=== PATIENT | female | born 1985 | race Caucasian/White ===

== ENCOUNTER 2016-12-22 14:48 | Emergency (ER) | payer SELFPAY ==
[2016-12-22 16:01] VITALS: BP 123/70
--- NOTE | 2016-12-22 16:24 | UC ---
Throat Pain/Nasal Joey HPI - HPI Summary HPI Summary: complaint of nasal congestion that started last night intermittent headache frequent coughing using vicks vapor rub denies fever and chills took some sudafed and excedrin this morning with some relief beiong treated for sinus infection that he has had for over a week - History of Current Complaint Chief Complaint: UCRespiratory Stated Complaint: SINUS COMPLAINT Time Seen by Provider: 12/22/16 16:08 Hx Obtained From: Patient Hx Last Menstrual Period: December 05, 2016 - Allergies/Home Medications Allergies/Adverse Reactions: Allergies Allergy/AdvReac Type Severity Reaction Status Date / Time Hydromorphone [From Dilaudid] Allergy Severe Swelling Verified 05/26/16 18:44 Morphine Allergy Severe Itching Verified 05/26/16 18:44 Penicillins Allergy Severe Anaphylatic Verified 05/26/16 18:44 Shock Hydrocodone [From Vicodin] Allergy Vomiting Verified 05/26/16 18:44 Home Medications: Home Medications Dextromethorphan-Acetaminophen [Triaminic Flu/Cough/Fever] 1 liq PO 12/22/16 [ History] PMH/Surg Hx/FS Hx/Imm Hx Previously Healthy: Yes Endocrine History Of: Denies: Diabetes, Thyroid Disease Cardiovascular History Of: Denies: Cardiac Disorders, Hypertension Respiratory History Of: Denies: COPD, Asthma GI/ History Of: Denies: Ulcer Comment Only: Gall Bladder Disease - gallbladder removal - Surgical History Surgical History: Yes Surgery Procedure, Year, and Place: CHOLECYSTECTOMY, APPENDECTOMY, RIGHT FINGER , RIGHT HAND, right eye surgery, Hemorrhagic ovarian cyst - Family History Known Family History: Positive: None Family History: no cardio vascular issues in family lineage - Social History Occupation: Employed Full-time Lives: With Family Alcohol Use: Occasionally Substance Use Type: None Smoking Status (MU): Current Every Day Smoker Type: Cigarettes Amount Used/How Often: 1/2 ppd Length of Time of Smoking/Using Tobacco: 10 years Have You Smoked in the Last Year: Yes Cessation Counseling: Patient Advised to Stop - Immunization History Most Recent Influenza Vaccination: 2015/2015 season Most Recent Tetanus Shot: within last ten years Most Recent Pneumonia Vaccination: No Review of Systems Constitutional: Negative Skin: Negative Eyes: Negative ENT: Nasal Discharge Respiratory: Cough Cardiovascular: Negative Gastrointestinal: Negative Genitourinary: Negative Motor: Negative Neurovascular: Negative Musculoskeletal: Negative Neurological: Headache Psychological: Negative All Other Systems Reviewed And Are Negative: Yes Physical Exam Triage Information Reviewed: Yes Appearance: No Pain Distress, Well-Nourished Vital Signs: Initial Vital Signs Temp 98.0 F 12/22/16 15:55 Pulse 74 12/22/16 15:55 Resp 20 12/22/16 15:55 BP 123/70 12/22/16 15:55 Pulse Ox 100 12/22/16 15:55 Vital Signs Reviewed: Yes Eyes: Positive: Conjunctiva Clear ENT: Positive: Pharyngeal erythema, Nasal congestion, Nasal drainage, TMs normal. Negative: TM bulging, TM red, Tonsillar swelling, Tonsillar exudate Neck: Positive: No Lymphadenopathy Respiratory: Positive: Lungs clear, Normal breath sounds, No respiratory distress Cardiovascular: Positive: RRR, No Murmur Abdomen Description: Positive: Nontender, Soft Bowel Sounds: Positive: Present Musculoskeletal: Positive: No Edema Neurological Exam: Normal Psychological Exam: Normal Skin Exam: Normal Throat Pain/Nasal Course/Dx - Course Course Of Treatment: exam completed. pt demanding antibiotic for treatment. explained that treatment for URI doesn't require an antibiotic but can be treated for symptoms and if she doesn't improve in 5-7 days she may need an antibiotic for secondary infection - Differential Dx/Diagnosis Differential Diagnosis/HQI/PQRI: Pharyngitis, Sinusitis, URI Provider Diagnoses: URI Discharge - Discharge Plan Condition: Stable Disposition: HOME Patient Education Materials: Upper Respiratory Infection (ED) Referrals: Erick Herbert MD [Medical Doctor] - Additional Instructions: VIRAL UPPER RESPIRATORY INFECTION (COMMON COLD) What is Viral Upper Respiratory Infection? Viral upper respiratory infection is the medical term for the common cold. Respiratory infections can be caused by either a virus or bacteria. The common cold is caused by a virus. The virus travels through the air and can be passed easily from one person to another. This is one reason that it is so important to cover your mouth when you cough or sneeze. When you cover your mouth you will get the virus on your hands. If you touch something with that hand the virus is spread to the object you touch. Because of this you should be sure to wash your hands often when you have a cold. Symptoms usually begin 1 to 3 days after the virus takes hold in your body. Other people can catch your cold even before you start to notice symptoms, which is one reason why colds are hard to prevent. Symptoms May Include: Scratchiness or tickling in the throat Sore throat Stuffy nose Generalized aches and pains Coughing or sneezing Feeling tired Treatment Recommendations: Drink plenty of clear, nonalcoholic fluids, such as water, sports drinks, or juice. For example, an average adult should drink 8 ounces every hour, a child 6 to 10 years should drink 4 ounces every hour, and a child under 6 should drink 1 to 2 ounces every hour. You should rest as much as possible. You can use a cool-mist humidifier or steam vaporizer to increase air moisture. This will make it easier to breathe. Remember that a steam vaporizer may contain hot water that can cause severe león. If you smoke, stopsmoke irritates bronchial passages. If you are coughing up mucus, and milk seems to make the sputum thicker, do not eat or drink foods that contain milk. You want to try to cough up mucous whenever possible so that you dont get pneumonia. Do not use cough suppressant medicine without your healthcare providers OK. You should take all medications prescribed until completely gone, or as instructed. Non-prescription medicine such as acetaminophen (Tylenol) or ibuprofen (Motrin , Advil) may help your aches, pains, and fever. Do not take someone else's medicine, or penicillin tablets that you may have saved. You could cause a more serious problem than you already have. Don't bundle up to sweat out a fever. It only makes your fever worse. If you feel cold, cover up; if you feel warm, dress lightly. Your blood pressure is pre-hypertensive reading. Please contact your primary care provider within 1 day -4 weeks for further evaluation
== END 2016-12-22 16:35 | disposition home or self-care (01) ==
LOC: UCEAST 14:48
DX: J06.9 Acute upper respiratory infection, unspecified (principal); Z90.49 Acquired absence of other specified parts of digestive tract; Z88.5 Allergy status to narcotic agent; Z88.0 Allergy status to penicillin; F17.210 Nicotine dependence, cigarettes, uncomplicated
CPT/HCPCS: 99211; G0463

== ENCOUNTER 2017-03-13 18:17 | Emergency (ER) | payer OTHER ==
[2017-03-13] MEDS ORDERED: Ondansetron INJ* 2 MG/ML VIAL IV ONE (20:20)
[2017-03-13] MEDS ORDERED: NS 0.9% 1000 ML* 1,000 ML IV ONE (20:20)
[2017-03-13] MEDS ORDERED: Ketorolac INJ* 30 MG/ML 1 ML VIAL IV PUSH ONE (20:20)
[2017-03-13] MEDS ORDERED: HYDROmorphone* 1 MG/ML 1 ML SYR IV SLOW PU ONE ×2 (20:22→21:59)
[2017-03-13 20:24] VITALS: BP 139/71
[2017-03-13 20:55] LABS: ALT 24 U/L (7-52); AST 32 U/L (13-39); Alkaline Phosphatase 77 U/L (34-104); Anion Gap 5 mmol/L (2-11); BUN/Creatinine Ratio 7.8 (8-20); Blood Urea Nitrogen 7 mg/dL (6-24); CO2 Carbon Dioxide 29 mmol/L (22-32); Calcium 8.9 mg/dL (8.6-10.3); Chloride 102 mmol/L (101-111); EGFR African American 93.9 (>60); Globulin 3.4 g/dL (2-4); Glucose 84 mg/dL (70-100); Potassium 3.8 mmol/L (3.5-5.0); Sodium 136 mmol/L (133-145); Total Protein 7.4 g/dL (6.4-8.9)
[2017-03-13 20:57] LABS: Hematocrit 38 % (35-47); Hemoglobin 12.9 g/dl (12.0-16.0); Mean Corpuscular HGB Conc 34 g/dl (31-36); Mean Corpuscular Hemoglobin 32 pg (27-31); Mean Corpuscular Volume 95 fL (80-97); Mean Platelet Volume 7 um3 (7.4-10.4); Red Blood Count 4.03 10^6/ul (4.0-5.4); Red Cell Distribution Width 13 % (10.5-15); White Blood Count 9.2 10^3/ul (3.5-10.8)
--- NOTE | 2017-03-13 21:45 | RAD ---
INDICATION: Pelvic pain COMPARISON: December 08, 2015 TECHNIQUE: Longitudinal and transverse transvaginal scans of the pelvis were obtained. FINDINGS: Uterus: The uterus measures 8.2 x 3.4 x 4.4 cm. Endometrial thickness: The endometrial thickness is measured at 0.7 cm. There is a small amount of fluid in the endocervical canal. Free fluid: There is no significant free fluid . Ovaries: The ovaries are normal in size. The right ovary measures 3.3 x 3.0 x 1.6 cm. The left ovary measures 2.4 x 1.4 x 1.6 cm. There is a 2.3 cm right ovarian cyst. Doppler interrogation demonstrates flow to each ovary. Other: There is prominent peristaltic bowel in the right lower quadrant. IMPRESSION: 2.3 CM RIGHT OVARIAN CYST.
[2017-03-13] MEDS ORDERED: LORazepam INJ* 2 MG/ML 1 ML VIAL IV PUSH ONE (22:00)
[2017-03-13 22:45] LABS: Urine Bilirubin Negative (Negative); Urine Glucose Negative (Negative); Urine Nitrite Negative (Negative)
--- NOTE | 2017-03-13 23:42 | ED ---
GI/ HPI - HPI Summary HPI Summary: 31F presents with diarrhea for 2 weeks and severe LLQ pain. She states is it similar to the pain that had when had ovarian cyst. She had to have the cyst surgical removed. She admits to a history of kidney stones but denies that the pain is similar. She denies any constipation or fever. She admits to occasionally blood in her stool. She also vomited up blood today. She denies any hematuria, dysuria, flank pain, vaginal discharge, history of STD. Her father has history of colon CA. She had her gallbladder removed. - History of Current Complaint Chief Complaint: EDAbdPain Time Seen by Provider: 03/13/17 20:15 Stated Complaint: ABD PAIN/VOMITING BLOOD Pain Intensity: 10 - Additional Pertinent History Primary Care Physician: HEIDY - Allergy/Home Medications Allergies/Adverse Reactions: Allergies Allergy/AdvReac Type Severity Reaction Status Date / Time Hydromorphone [From Dilaudid] Allergy Severe Swelling Verified 05/26/16 18:44 Morphine Allergy Severe Itching Verified 05/26/16 18:44 Penicillins Allergy Severe Anaphylatic Verified 05/26/16 18:44 Shock Hydrocodone [From Vicodin] Allergy Vomiting Verified 05/26/16 18:44 PMH/Surg Hx/FS Hx/Imm Hx Endocrine/Hematology History: Denies: Hx Diabetes, Hx Thyroid Disease Cardiovascular History: Denies: Hx Hypertension Respiratory History: Denies: Hx Asthma, Hx Chronic Obstructive Pulmonary Disease (COPD) GI History: Denies: Hx Ulcer Comment Only: Hx Gall Bladder Disease - gallbladder removal Musculoskeletal History: Denies: Hx Rheumatoid Arthritis, Hx Osteoporosis Sensory History: Reports: Hx Eye Injury Opthamlomology History: Reports: Hx Eye Injury - Surgical History Surgery Procedure, Year, and Place: CHOLECYSTECTOMY, APPENDECTOMY, RIGHT FINGER , RIGHT HAND, right eye surgery, Hemorrhagic ovarian cyst - Immunization History Date of Tetanus Vaccine: unknown Date of Influenza Vaccine: 2012 Infectious Disease History: No Infectious Disease History: Denies: Hx Clostridium Difficile, Hx Hepatitis, Hx Human Immunodeficiency Virus (HIV), Hx of Known/Suspected MRSA, Hx Shingles, Hx Tuberculosis, Hx Known/ Suspected VRE, Hx Known/Suspected VRSA, History Other Infectious Disease, Traveled Outside the [place] in Last 30 Days - Family History Known Family History: Positive: None Family History: no cardio vascular issues in family lineage - Social History Alcohol Use: Occasionally Substance Use Type: Reports: None Smoking Status (MU): Current Every Day Smoker Type: Cigarettes Amount Used/How Often: 1/2 ppd Length of Time of Smoking/Using Tobacco: 10 years Have You Smoked in the Last Year: Yes Review of Systems Negative: Fever Negative: Chest Pain Negative: Shortness Of Breath Positive: Abdominal Pain, Vomiting, Diarrhea, Nausea All Other Systems Reviewed And Are Negative: Yes Physical Exam Triage Information Reviewed: Yes Vital Signs On Initial Exam: Initial Vitals Temp Pulse Resp BP Pulse Ox 98.5 F 103 20 142/86 98 03/13/17 18:19 03/13/17 18:19 03/13/17 18:19 03/13/17 18:19 03/13/17 18:19 Vital Signs Reviewed: Yes Appearance: Positive: Pain Distress Skin: Positive: Warm, Dry Head/Face: Positive: Normal Head/Face Inspection Eyes: Positive: Normal, Conjunctiva Clear ENT: Positive: Normal ENT inspection, Pharynx normal, TMs normal Respiratory/Lung Sounds: Positive: Clear to Auscultation, Breath Sounds Present Cardiovascular: Positive: Normal, RRR Abdomen Description: Positive: Soft, Other: - severe tenderness LLQ. Negative: CVA Tenderness (L) Bowel Sounds: Positive: Present - Yesenia Coma Scale Coma Scale Total: 15 Diagnostics - Vital Signs Vital Signs Temp Pulse Resp BP Pulse Ox 03/13/17 22:09 18 03/13/17 20:44 20 03/13/17 20:08 98.4 F 105 20 139/71 97 03/13/17 19:30 98.8 F 93 20 136/82 97 03/13/17 18:19 98.5 F 103 20 142/86 98 - Laboratory Lab Results: Lab Results 03/13/17 03/13/17 03/13/17 Range/Units 20:00 20:04 20:04 WBC 9.2 (3.5-10.8) 10^3/ul RBC 4.03 (4.0-5.4) 10^6/ul Hgb 12.9 (12.0-16.0) g/dl Hct 38 (35-47) % MCV 95 (80-97) fL MCH 32 H (27-31) pg MCHC 34 (31-36) g/dl RDW 13 (10.5-15) % Plt Count 438 (150-450) 10^3/ul MPV 7 L (7.4-10.4) um3 Neut % (Auto) 44.9 (38-83) % Lymph % (Auto) 42.2 (25-47) % [place] % (Auto) 9.4 H (1-9) % Eos % (Auto) 2.9 (0-6) % Baso % (Auto) 0.6 (0-2) % Absolute Neuts (auto) 4.1 (1.5-7.7) 10^3/ul Absolute Lymphs (auto) 3.9 (1.0-4.8) 10^3/ul Absolute Monos (auto) 0.9 H (0-0.8) 10^3/ul Absolute Eos (auto) 0.3 (0-0.6) 10^3/ul Absolute Basos (auto) 0.1 (0-0.2) 10^3/ul Absolute Nucleated RBC 0.01 10^3/ul Nucleated RBC % 0.1 INR (Anticoag Therapy) (0.89-1.11) Sodium 136 (133-145) mmol/L Potassium 3.8 (3.5-5.0) mmol/L Chloride 102 (101-111) mmol/L Carbon Dioxide 29 (22-32) mmol/L Anion Gap 5 (2-11) mmol/L BUN 7 (6-24) mg/dL Creatinine 0.90 (0.51-0.95) mg/dL Est GFR ( Amer) 93.9 (>60) Est GFR (Non-Af Amer) 73.0 (>60) BUN/Creatinine Ratio 7.8 L (8-20) Glucose 84 (70-100) mg/dL Calcium 8.9 (8.6-10.3) mg/dL Total Bilirubin 0.40 (0.2-1.0) mg/dL AST 32 (13-39) U/L ALT 24 (7-52) U/L Alkaline Phosphatase 77 (34-104) U/L C-React Prot High Sens 3.84 mg/L Total Protein 7.4 (6.4-8.9) g/dL Albumin 4.0 (3.2-5.2) g/dL Globulin 3.4 (2-4) g/dL Albumin/Globulin Ratio 1.2 (1-3) Beta HCG, Quant < 0.60 mIU/mL Urine Color Urine Appearance Urine pH (5-9) Ur Specific [place] (1.010-1.030) Urine Protein (Negative) Urine Ketones (Negative) Urine Blood (Negative) Urine Nitrate (Negative) Urine Bilirubin (Negative) Urine Urobilinogen (Negative) Ur Leukocyte Esterase (Negative) Urine Glucose (Negative) Blood Type O Positive Antibody Screen Negative 03/13/17 03/13/17 Range/Units 20:04 21:46 WBC (3.5-10.8) 10^3/ul RBC (4.0-5.4) 10^6/ul Hgb (12.0-16.0) g/dl Hct (35-47) % MCV (80-97) fL MCH (27-31) pg MCHC (31-36) g/dl RDW (10.5-15) % Plt Count (150-450) 10^3/ul MPV (7.4-10.4) um3 Neut % (Auto) (38-83) % Lymph % (Auto) (25-47) % [place] % (Auto) (1-9) % Eos % (Auto) (0-6) % Baso % (Auto) (0-2) % Absolute Neuts (auto) (1.5-7.7) 10^3/ul Absolute Lymphs (auto) (1.0-4.8) 10^3/ul Absolute Monos (auto) (0-0.8) 10^3/ul Absolute Eos (auto) (0-0.6) 10^3/ul Absolute Basos (auto) (0-0.2) 10^3/ul Absolute Nucleated RBC 10^3/ul Nucleated RBC % INR (Anticoag Therapy) 0.97 (0.89-1.11) Sodium (133-145) mmol/L Potassium (3.5-5.0) mmol/L Chloride (101-111) mmol/L Carbon Dioxide (22-32) mmol/L Anion Gap (2-11) mmol/L BUN (6-24) mg/dL Creatinine (0.51-0.95) mg/dL Est GFR ( Amer) (>60) Est GFR (Non-Af Amer) (>60) BUN/Creatinine Ratio (8-20) Glucose (70-100) mg/dL Calcium (8.6-10.3) mg/dL Total Bilirubin (0.2-1.0) mg/dL AST (13-39) U/L ALT (7-52) U/L Alkaline Phosphatase (34-104) U/L C-React Prot High Sens mg/L Total Protein (6.4-8.9) g/dL Albumin (3.2-5.2) g/dL Globulin (2-4) g/dL Albumin/Globulin Ratio (1-3) Beta HCG, Quant mIU/mL Urine Color Yellow Urine Appearance Clear Urine pH 7.0 (5-9) Ur Specific [place] 1.011 (1.010-1.030) Urine Protein Negative (Negative) Urine Ketones Negative (Negative) Urine Blood Negative (Negative) Urine Nitrate Negative (Negative) Urine Bilirubin Negative (Negative) Urine Urobilinogen Negative (Negative) Ur Leukocyte Esterase Negative (Negative) Urine Glucose Negative (Negative) Blood Type Antibody Screen Result Diagrams: 03/13/17 20:00 03/13/17 20:04 Lab Statement: Any lab studies that have been ordered have been reviewed, and results considered in the medical decision making process. - CT abd CT Interpretation: Positive (See Comments) - nonspecific sigmoid colititis CT Interpretation Completed By: Radiologist - Ultrasound No standard instances Ultrasound Interpretation: Positive (See Comments) - IMPRESSION: 2.3 CM RIGHT OVARIAN CYST. Ultrasound Interpretation Completed By: Radiologist Re-Evaluation - Re-Evaluation First Eval Re-Evaluation Time: 00:06 Change: Improved Comment: feeling better after pain medication GIGU Course/Dx - Course Course Of Treatment: 31F presents with diarrhea for 2 weeks and severe LLQ pain. She states is it similar to the pain that had when had ovarian cyst. She had to have the cyst surgical removed. She admits to a history of kidney stones but denies that the pain is similar. She denies any constipation or fever. She admits to occasionally blood in her stool. She also vomited up blood today. She denies any hematuria, dysuria, flank pain, vaginal discharge, history of STD. Her father has history of colon CA. She had her gallbladder removed. on exam extreme tenderness LLQ, neg CVA tenderness. CRP normal and wbc normal. cyst on right ovary. CT shows sigmoid colitis. due to normal CRP will not start steriod for potential IBD at this time will give referral to GI. will treat as infectious colitis at this time with cipro. patient understands and agrees with plan. - Diagnoses Differential Diagnoses - Female: Colitis, Diverticulitis, Ovarian Cyst, Ulcerative Colitis/Crohn's Disease Provider Diagnoses: Abdominal pain, Colitis Discharge - Discharge Plan Condition: Good Disposition: HOME Prescriptions: Ciprofloxacin TAB* [Cipro 500 MG TAB*] 500 mg PO BID #19 tab HYDROcodone/ACETAMIN 5-325 MG* [[place] 5-325 TAB*] 1 tab PO Q6H PRN #8 tab MDD 4 PRN Reason: Pain Ondansetron ODT TAB* [Zofran 4 MG Odt TAB*] 4 mg PO Q6H PRN #20 tab.odt PRN Reason: Nausea Patient Education Materials: Colitis (ED) Referrals: Siomara Slater NP [Primary Care Provider] - Arvind Christine MD [Medical Doctor] - Additional Instructions: Take cipro twice a day for 10 days Take ibuprofen or tyenlol every 6 hours for pain Follow up with GI for further work up Return to ED if develop any new or worsening symptoms
[2017-03-13] MEDS ORDERED: HYDROcodone/ACETAMIN 5-325 MG* 1 TAB PO ONE (23:49)
[2017-03-13] MEDS ORDERED: Ciprofloxacin TAB* 500 MG PO ONE (23:49)
--- NOTE | 2017-03-14 07:38 | RAD ---
INDICATION: Left lower quadrant abdominal pain. COMPARISON: Comparison is made with a prior CT of the abdomen and pelvis from December 08, 2015. TECHNIQUE: A CT scan of the abdomen and pelvis was performed without intravenous or oral contrast. Contiguous axial sections were obtained from the lung bases through the symphysis pubis. Images were reconstructed in the coronal and sagittal planes. The exam is limited due to a paucity of abdominal fat and noncontrast technique. FINDINGS: The lung bases are clear. No pleural effusion is present. The liver and spleen are normal in size without significant focal abnormality on this noncontrast study. The patient is status post cholecystectomy. The pancreas appears normal in size. The kidneys and adrenal glands are normal in size. There is faint increased density in the region of the medullary pyramids suggesting the possibility of medullary sponge kidney disease. No discrete renal calculi are seen. No hydronephrosis is noted. There is a small calcific density present adjacent the posterior aspect of the urinary bladder in the midline which is unchanged from the prior exam and likely incidental. The aorta is normal in caliber without significant calcific plaque. Evaluation of the retroperitoneum is limited due to a paucity of abdominal fat, no gross enlarged lymph nodes are seen. The stomach, small and large bowel appear nondistended. The patient is status post appendectomy by history. There are surgical sutures and clips in the right lower quadrant. There is suggestion of mild thickening of the wall of the sigmoid colon which is again limited due to noncontrast technique suggesting the possibility of colitis. The uterus is not well-defined although appears anteverted and grossly normal in size. No free intraperitoneal air or fluid is seen. No significant focal osseous abnormality is seen. IMPRESSION: 1. LIMITED STUDY. 2. PROBABLE MILD THICKENING OF THE SIGMOID COLON SUGGESTIVE OF COLITIS. RECOMMEND CLINICAL CORRELATION. 3. 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 4. STATUS POST CHOLECYSTECTOMY.
== END 2017-03-14 00:03 | disposition home or self-care (01) ==
LOC: ED 18:17
DX: K52.9 Noninfective gastroenteritis and colitis, unspecified (principal); N83.201 Unspecified ovarian cyst, right side; Z32.02 Encounter for pregnancy test, result negative; R10.32 Left lower quadrant pain; K92.0 Hematemesis; Z87.442 Personal history of urinary calculi; Z90.49 Acquired absence of other specified parts of digestive tract; Z88.5 Allergy status to narcotic agent; Z88.0 Allergy status to penicillin; F17.210 Nicotine dependence, cigarettes, uncomplicated
CPT/HCPCS: 36415; 74176; 76830; 80053; 81003; 84702; 85025; 85610; 86141; 86850; 86900; 86901; 96361; 96374; 96375; 96376; 99285; A9270-GY; J1170; J1885; J2060; J2405

== ENCOUNTER → 2017-03-15 14:41 | Emergency (ER) | payer OTHER ==
[2017-03-15 14:48] VITALS: BP 137/100
== END | disposition left against medical advice (07) ==
LOC: ED 14:41
DX: R10.9 Unspecified abdominal pain (principal); Z53.21 Procedure and treatment not carried out due to patient leaving prior to being seen by health care provider

== ENCOUNTER 2017-08-04 10:49 | Emergency (ER) | payer OTHER ==
[2017-08-04] MEDS ORDERED: Ondansetron INJ* 2 MG/ML VIAL IV ONE (11:40)
[2017-08-04] MEDS ORDERED: HYDROcodone/ACETAMIN 5-325 MG* 1 TAB PO ONE (11:43)
[2017-08-04 12:14] LABS: Hematocrit 40 % (35-47); Hemoglobin 13.8 g/dl (12.0-16.0); Mean Corpuscular HGB Conc 35 g/dl (31-36); Mean Corpuscular Hemoglobin 33 pg (27-31); Mean Corpuscular Volume 96 fL (80-97); Mean Platelet Volume 6 um3 (7.4-10.4); Red Blood Count 4.18 10^6/ul (4.0-5.4); Red Cell Distribution Width 13 % (10.5-15); White Blood Count 7.6 10^3/ul (3.5-10.8)
[2017-08-04] MEDS ORDERED: Morphine INJ* 4 MG/ML 1 ML CARPUJECT IV ONE (12:27)
--- NOTE | 2017-08-04 13:12 | ED ---
- HPI Summary HPI Summary: Patient is an otherwise healthy with a history of induced several years ago and currently 6 week F who presents to the ED with vaginal bleeding since this morning around 9am. She states she soaked through 2 pads and continues to have heavy bleeding and cramping. Pain is 8/10 with associated nausea. She notes to back pain as well. She is tearful on exam. Pain is located in the bilateral lower quadrants, worse on the right side. Hx of kidney stone 1 x which passed spontaneously. Hx of appendctromy and cholecystectomy and right sided hemorrhagic ovarian cyst. Denies urinary symptoms. Bleeding is bright red. Denies hx of anemia. Denies any other symptoms at this time. Father at bedside. - History of Current Complaint Chief Complaint: EDOBProblems Stated Complaint: PREG,CRAMPING,BLOODING Time Seen by Provider: 08/04/17 11:07 Hx Obtained From: Patient Chief Complaint: Concern for Embryonic Dem, Pain, Vaginal Bleeding Onset/Duration: Started Hours Ago Timing: Constant Severity: Moderate Current Severity: Moderate Pain Intensity: 8 Location of Pain: Right Side, Suprapubic Character: Cramping Aggravating Factors: Nothing Alleviating Factors: Nothing Associated Signs and Symptoms: Positive: Vaginal Bleeding or Discharge - Assessment Hx Now: No Hx Hysterectomy: No - Additional Pertinent History Primary Care Physician: [id number] - Allergies/Home Medications Allergies/Adverse Reactions: Allergies Allergy/AdvReac Type Severity Reaction Status Date / Time Hydromorphone [From Dilaudid] Allergy Severe Swelling Verified 03/15/17 14:45 Morphine Allergy Severe Itching Verified 03/15/17 14:45 Penicillins Allergy Severe Anaphylatic Verified 03/15/17 14:45 Shock PMH/Surg Hx/FS Hx/Imm Hx Previously Healthy: Yes Endocrine/Hematology History: Denies: Hx Diabetes, Hx Thyroid Disease Cardiovascular History: Denies: Hx Hypertension Respiratory History: Denies: Hx Asthma, Hx Chronic Obstructive Pulmonary Disease (COPD) GI History: Denies: Hx Ulcer Comment Only: Hx Gall Bladder Disease - gallbladder removal Musculoskeletal History: Denies: Hx Rheumatoid Arthritis, Hx Osteoporosis Sensory History: Reports: Hx Eye Injury Opthamlomology History: Reports: Hx Eye Injury - Surgical History Surgery Procedure, Year, and Place: CHOLECYSTECTOMY, APPENDECTOMY, RIGHT FINGER , RIGHT HAND, right eye surgery, Hemorrhagic ovarian cyst - Immunization History Date of Tetanus Vaccine: unknown Date of Influenza Vaccine: 2013 Immunizations Up to Date: Unable to Obtain/Confirm Infectious Disease History: No Infectious Disease History: Denies: Hx Clostridium Difficile, Hx Hepatitis, Hx Human Immunodeficiency Virus (HIV), Hx of Known/Suspected MRSA, Hx Shingles, Hx Tuberculosis, Hx Known/ Suspected VRE, Hx Known/Suspected VRSA, History Other Infectious Disease, Traveled Outside the [place] in Last 30 Days - Family History Known Family History: Positive: None Family History: no cardio vascular issues in family lineage - Social History Occupation: Employed Full-time Lives: With Family Alcohol Use: Occasionally Hx Substance Use: No Substance Use Type: Reports: None Hx Tobacco Use: Yes Smoking Status (MU): Current Every Day Smoker Type: Cigarettes Amount Used/How Often: 1/2 ppd Length of Time of Smoking/Using Tobacco: 10 years Have You Smoked in the Last Year: Yes Review of Systems Constitutional: Negative Negative: Fever, Chills, Fatigue Eyes: Negative Cardiovascular: Negative Respiratory: Negative Positive: Abdominal Pain, Nausea Genitourinary: Negative Positive: no symptoms reported, see HPI Musculoskeletal: Negative Neurological: Negative All Other Systems Reviewed And Are Negative: Yes Physical Exam - Physical Exam Triage Information Reviewed: Yes Vital Signs Reviewed: Yes Appearance: Positive: Ill-Appearing - tearful Skin: Positive: Skin Color Reflects Adequate Perfusion Head/Face: Positive: Normal Head/Face Inspection Eyes: Positive: EOMI, AYDEN, Conjunctiva Clear Neck: Positive: Supple, Nontender, No Lymphadenopathy Respiratory/Lung Sounds: Positive: Clear to Auscultation Cardiovascular: Positive: Normal, RRR Abdomen Description: Positive: Soft, Other: - pain on light palpation to the bilateral lower quadrants Musculoskeletal: Positive: Strength/ROM Intact Neurological: Positive: Speech Normal Psychiatric: Positive: Normal, Affect/Mood Appropriate AVPU Assessment: Alert Diagnostics - Vital Signs Vital Signs Temp Pulse Resp BP Pulse Ox 08/04/17 10:51 96.9 F 88 17 155/100 100 - Laboratory Lab Results: Lab Results 08/04/17 08/04/17 08/04/17 Range/Units 12:03 12:03 12:03 WBC 7.6 (3.5-10.8) 10^3/ul RBC 4.18 (4.0-5.4) 10^6/ul Hgb 13.8 (12.0-16.0) g/dl Hct 40 (35-47) % MCV 96 (80-97) fL MCH 33 H (27-31) pg MCHC 35 (31-36) g/dl RDW 13 (10.5-15) % Plt Count 354 (150-450) 10^3/ul MPV 6 L (7.4-10.4) um3 Neut % (Auto) 63.9 (38-83) % Lymph % (Auto) 25.5 (25-47) % Foard % (Auto) 7.8 (1-9) % Eos % (Auto) 2.3 (0-6) % Baso % (Auto) 0.5 (0-2) % Absolute Neuts (auto) 4.8 (1.5-7.7) 10^3/ul Absolute Lymphs (auto) 1.9 (1.0-4.8) 10^3/ul Absolute Monos (auto) 0.6 (0-0.8) 10^3/ul Absolute Eos (auto) 0.2 (0-0.6) 10^3/ul Absolute Basos (auto) 0 (0-0.2) 10^3/ul Absolute Nucleated RBC 0 10^3/ul Nucleated RBC % 0 Lactic Acid 0.8 (0.5-2.0) mmol/L Blood Type O Positive Antibody Screen Negative Result Diagrams: 08/04/17 12:03 08/04/17 12:03 Lab Statement: Any lab studies that have been ordered have been reviewed, and results considered in the medical decision making process. Course/Dx - Course Course Of Treatment: Patient presents with vaginal bleeding. HCG obtained and WNL for 5 weeks gestation. Right ovary measures 3.7 x 3.2 x 2.9 cm. Left ovary measures 1.8 x 2.3 x 1.6 cm. IMPRESSION: Intrauterine gestation sac with a gestational age of 5 weeks 0 days. No . pole is identified. She presents with 2 episodes of vaginal bleeding and cramping which has soaked through 2 pads since yesterday. Given hydrocodone x 2 in the ED. Heating pads given. She is very tearful. Labs obtained and looked OK. Discussed possibility of early embryonic demise vs. normal 1st trimester. She is encouraged to continue to follow up with OBGYN as scheduled for next week. She is to return for any heavy bleeding (1 pad per hour) or if she becomes light headed. I have advised against pain medications at this time d/t IUP viability. She is agreeable to this and will return if these symptoms develop. She understands this may be an early miscarriage, but I discussed without having a repeat beta HCG level, we are unable to tell at this time. She is agreeable to discharge. - Differential Diagnosis/HQI/PQRI: Incomplete , Missed , Threatened , First Trimester Bleeding - Diagnoses Provider Diagnoses: First trimester bleeding Discharge - Discharge Plan Condition: Stable Disposition: HOME Patient Education Materials: (ED), First Trimester Vaginal Bleed (ED) Referrals: No Primary Care Phys,NOPCP [Primary Care Provider] - Additional Instructions: If you have heavy bleeding (1 pad per hour), please return to the ED Keep appt with OBGYN on to check for HCG levels and assess the further Tylenol 650mg 3-4 times daily for pain Heat packs to the abdomen I recommend you start vitamins if you are not already taking them Drink plenty of water (this helps with cramping)
[2017-08-04 13:21] LABS: Albumin 4.5 g/dL (3.2-5.2); Calcium 9.5 mg/dL (8.6-10.3); EGFR African American 119.6 (>60); Globulin 2.8 g/dL (2-4); Potassium 4.2 mmol/L (3.5-5.0); Total Bilirubin 0.4 mg/dL (0.2-1.0); Total Protein 7.3 g/dL (6.4-8.9)
--- NOTE | 2017-08-04 14:12 | RAD ---
Indication: Six-week with vaginal bleeding. Real-time sonography of the was performed. There is intrauterine gestational sac measuring 5 mm corresponding to gestational age of 5 weeks 0 days. Small echogenic focus may represent a tiny sac. No definite pole is noted. Follow-up exam is suggested. Right ovary measures 3.7 x 3.2 x 2.9 cm. Left ovary measures 1.8 x 2.3 x 1.6 cm. IMPRESSION: Intrauterine gestation sac with a gestational age of 5 weeks 0 days. No pole is identified.
[2017-08-04 16:23] VITALS: BP 111/68
== END 2017-08-04 14:49 | disposition home or self-care (01) ==
LOC: ED 10:49
DX: O46.91 Antepartum hemorrhage, unspecified, first trimester (principal); Z3A.01 Less than 8 weeks gestation of pregnancy; O99.331 Smoking (tobacco) complicating pregnancy, first trimester; F17.210 Nicotine dependence, cigarettes, uncomplicated
CPT/HCPCS: 36415; 76817; 80053; 83605; 84702; 85025; 86850; 86900; 86901; 96374; 99282; J2405

== ENCOUNTER 2017-12-10 15:24 | Emergency (ER) | payer SELFPAY ==
--- NOTE | 2017-12-10 15:40 | UC ---
Lower Extremity/Ankle HPI - HPI Summary HPI Summary: Pt presents with left foot pain. She tells me that last night she dropped a cinder block on top of her foot. Has difficulty walking and increased pain today. Hx of fracture to left tib/fib. Denies numbness or tingling. Has been taking 800mg ibuprofen for pain with not much relief. - History of Current Complaint Stated Complaint: FOOT INJURY Time Seen by Provider: 12/10/17 15:39 Hx Obtained From: Patient Hx Last Menstrual Period: December 05, 2016 Onset/Duration: Sudden Onset Severity Initially: Severe Severity Currently: Severe Pain Intensity: 8 Pain Scale Used: 0-10 Numeric Aggravating Factor(s): Standing, Ambulation Alleviating Factor(s): Rest, Elevation Able to Bear Weight: Yes - Allergies/Home Medications Allergies/Adverse Reactions: Allergies Allergy/AdvReac Type Severity Reaction Status Date / Time MS Hydromorphone Allergy Severe Swelling Verified 12/10/17 15:46 [From Dilaudid] MS Morphine [Morphine] Allergy Severe Itching Verified 12/10/17 15:46 MS Penicillins [Penicillins] Allergy Severe Anaphylatic Verified 12/10/17 15:46 Shock PMH/Surg Hx/FS Hx/Imm Hx - Additional Past Medical History Additional PMH: None Previously Healthy: Yes - Surgical History Surgical History: Yes Surgery Procedure, Year, and Place: CHOLECYSTECTOMY, APPENDECTOMY, RIGHT FINGER , RIGHT HAND, right eye surgery, Hemorrhagic ovarian cyst - Family History Known Family History: Positive: None Family History: no cardio vascular issues in family lineage - Social History Occupation: Employed Full-time Lives: With Family Alcohol Use: Occasionally Substance Use Type: None Smoking Status (MU): Current Every Day Smoker Type: Cigarettes Amount Used/How Often: 1/2 ppd Length of Time of Smoking/Using Tobacco: 10 years Have You Smoked in the Last Year: Yes - Immunization History Most Recent Influenza Vaccination: 2015/2015 season Most Recent Tetanus Shot: within last ten years Most Recent Pneumonia Vaccination: No Review of Systems Constitutional: Negative Skin: Negative Respiratory: Negative Cardiovascular: Negative Neurovascular: Negative Musculoskeletal: Other: - Left foot pain Neurological: Negative Psychological: Negative All Other Systems Reviewed And Are Negative: Yes Physical Exam - Summary Physical Exam Summary: GENERAL: NAD. WDWN. No pain distress. SKIN: No rashes, sores, lesions, or open wounds. NECK: Supple. Nontender. No lymphadenopathy. CHEST: No accessory muscle use. Breathing comfortably and in no distress. CV: RRR. Without m/r/g. Pulses intact PT and DP. Brisk cap refill. MSK: TTP? FROM NEED SIDE____. Strength 5/5. No edema or obvious bony deformities. Negative talar tilt. No increased laxity. Negative [place] test. NEURO: Alert. Sensations intact and symmetric B/L LEs PSYCH: Age appropriate behavior. Triage Information Reviewed: Yes Lower Extremity Course/Dx - Course Course Of Treatment: XR: Discharge - Sign-Out/Discharge Documenting (check all that apply): Discharge/Admit/Transfer - Discharge Plan Condition: Stable Disposition: HOME Referrals: No Primary Care Phys,NOPCP [Primary Care Provider] - - Billing Disposition and Condition Condition: STABLE Disposition: HOME
[2017-12-10 15:46] VITALS: BP 122/77
--- NOTE | 2017-12-10 16:07 | UC ---
Lower Extremity/Ankle HPI - HPI Summary HPI Summary: Accidentally dropped a cinder block on L foot last night. Pain/bruising/ swelling centered around base of L great toe. Pt unable to bear weight normally , only walking on heel. - History of Current Complaint Chief Complaint: UCLowerExtremity Stated Complaint: FOOT INJURY Time Seen by Provider: 12/10/17 15:39 Hx Obtained From: Patient Hx Last Menstrual Period: 12/08/17 ?: No Onset/Duration: Sudden Onset Severity Initially: Severe Severity Currently: Moderate Pain Intensity: 8 Aggravating Factor(s): Standing, Ambulation Alleviating Factor(s): Rest Able to Bear Weight: Yes - only on heel - Allergies/Home Medications Allergies/Adverse Reactions: Allergies Allergy/AdvReac Type Severity Reaction Status Date / Time MS Hydromorphone Allergy Severe Swelling Verified 12/10/17 15:46 [From Dilaudid] MS Morphine [Morphine] Allergy Severe Itching Verified 12/10/17 15:46 MS Penicillins [Penicillins] Allergy Severe Anaphylatic Verified 12/10/17 15:46 Shock PMH/Surg Hx/FS Hx/Imm Hx Previously Healthy: Yes - Surgical History Surgical History: Yes Surgery Procedure, Year, and Place: CHOLECYSTECTOMY, APPENDECTOMY, RIGHT FINGER , RIGHT HAND, right eye surgery, Hemorrhagic ovarian cyst - Family History Known Family History: Positive: None Family History: no cardio vascular issues in family lineage - Social History Occupation: Employed Full-time - education [employer] Alcohol Use: Occasionally Substance Use Type: None Smoking Status (MU): Current Every Day Smoker Type: Cigarettes Amount Used/How Often: 1/2 ppd Length of Time of Smoking/Using Tobacco: 10 years Have You Smoked in the Last Year: Yes - Immunization History Most Recent Influenza Vaccination: season Most Recent Tetanus Shot: within last ten years Most Recent Pneumonia Vaccination: No Review of Systems Constitutional: Negative Skin: Negative Eyes: Negative ENT: Negative Respiratory: Negative Cardiovascular: Negative Gastrointestinal: Negative Genitourinary: Negative Motor: Negative Neurovascular: Negative Musculoskeletal: Arthralgia, Decreased ROM Neurological: Negative Psychological: Negative Is Patient Immunocompromised?: No All Other Systems Reviewed And Are Negative: Yes Physical Exam Triage Information Reviewed: Yes Appearance: Well-Appearing, Pain Distress - mild Vital Signs: Initial Vital Signs Temp 99.9 F 12/10/17 15:40 Pulse 96 12/10/17 15:40 Resp 20 12/10/17 15:40 BP 122/77 12/10/17 15:40 Pulse Ox 100 12/10/17 15:40 Vital Signs Reviewed: Yes Eye Exam: Normal Eyes: Positive: Conjunctiva Clear ENT Exam: Normal ENT: Positive: Normal ENT inspection, Hearing grossly normal, Pharynx normal, TMs normal Dental Exam: Normal Neck exam: Normal Neck: Positive: Supple, Nontender, No Lymphadenopathy Respiratory Exam: Normal Respiratory: Positive: Chest non-tender, Lungs clear, Normal breath sounds, No respiratory distress, No accessory muscle use Cardiovascular Exam: Normal Cardiovascular: Positive: RRR, No Murmur Musculoskeletal Exam: Other - diffuse ecchymosis and swelling centered around L 1st MTP joint, bruising and swelling noted on sole of foot as well. Musculoskeletal: Positive: ROM Limited @ - L 1st MTP joint Neurological Exam: Normal Neurological: Positive: Alert Psychological Exam: Normal Skin Exam: Other - marked bruising and swelling over L foot as described above Lower Extremity Course/Dx - Differential Dx/Diagnosis Provider Diagnoses: L foot crush injury to soft tissues Discharge - Sign-Out/Discharge Documenting (check all that apply): Discharge/Admit/Transfer - Discharge Plan Condition: Stable Disposition: HOME Patient Education Materials: Crush Injury (ED) Referrals: No Primary Care Phys,NOPCP [Primary Care Provider] - - Billing Disposition and Condition Condition: STABLE Disposition: HOME
--- NOTE | 2017-12-10 16:24 | RAD ---
HISTORY: Left foot pain COMPARISONS: None VIEWS: 3, Frontal, lateral, and oblique views of the left foot FINDINGS: BONE DENSITY: Normal. BONES: There is no displaced fracture. JOINTS: There is no arthropathy. ALIGNMENT: There is no dislocation. SOFT TISSUES: Unremarkable. OTHER FINDINGS: None. IMPRESSION: NO ACUTE OSSEOUS INJURY. IF SYMPTOMS PERSIST, RECOMMEND REPEAT IMAGING.
== END 2017-12-10 16:45 | disposition home or self-care (01) ==
LOC: UCEAST 15:24
DX: S97.82XA Crushing injury of left foot, initial encounter (principal); W20.8XXA Other cause of strike by thrown, projected or falling object, initial encounter; Y93.9 Activity, unspecified; Y92.9 Unspecified place or not applicable; Z88.5 Allergy status to narcotic agent; Z88.0 Allergy status to penicillin; F17.210 Nicotine dependence, cigarettes, uncomplicated
CPT/HCPCS: 99213; G0463

== ENCOUNTER 2018-03-09 14:51 | Emergency (ER) | payer SELFPAY ==
[2018-03-09 17:36] LABS: ABS Basophils 0 10^3/ul (0-0.2); ABS Eosinophils 0.2 10^3/ul (0-0.6); ABS Lymphocytes 2.8 10^3/ul (1.0-4.8); ABS Monocytes 0.7 10^3/ul (0-0.8); ABS Neutrophils 5.2 10^3/ul (1.5-7.7); ABS Nucleated RBC 0 10^3/ul; Eosinophil % 2.5 % (0-6); Hematocrit 40 % (35-47); Hemoglobin 13.3 g/dl (12.0-16.0); Lymphocyte % 31.3 % (25-47); Mean Corpuscular HGB Conc 34 g/dl (31-36); Mean Corpuscular Hemoglobin 33 pg (27-31); Mean Corpuscular Volume 96 fL (80-97); Mean Platelet Volume 6.5 um3 (7.4-10.4); Nucleated Red Blood Cells % 0; Platelet Count 307 10^3/ul (150-450); Red Blood Count 4.11 10^6/ul (4.00-5.40); Red Cell Distribution Width 13 % (10.5-15)
[2018-03-09] MEDS ORDERED: Ondansetron INJ* 2 MG/ML VIAL IV ONE (17:49)
[2018-03-09] MEDS ORDERED: Morphine VIAL* 4 MG/ML VIAL (1 ml vial) IV ONE ×2 (17:49→20:30)
[2018-03-09] MEDS ORDERED: Morphine INJ* 2 MG/ML 1 ML SYRINGE (TWO MG - NEW SYRINGE VERSION) IV ONE ×3 (17:58→21:11)
[2018-03-09 18:00] LABS: EGFR Non-African American 73.5 (>60)
[2018-03-09] MEDS ORDERED: Morphine INJ* 2 MG/ML 1 ML SYRINGE (TWO MG - NEW SYRINGE VERSION) ONE (18:00)
[2018-03-09 18:14] LABS: Urine Appearance Cloudy; Urine Blood 1+ (Negative); Urine Color Yellow; Urine Ketones Negative (Negative); Urine Protein Negative (Negative); Urine Red Blood Cell Trace(0-2/hpf) (Absent); Urine Specific Gravity 1.017 (1.010-1.030); Urine Urobilinogen Negative (Negative); Urine White Blood Cell Absent (Absent)
[2018-03-09] MEDS ORDERED: Ketorolac INJ* 30 MG/ML 1 ML VIAL IV PUSH ONE (19:05)
[2018-03-09] MEDS ORDERED: Ketorolac INJ* 30 MG/ML 1 ML VIAL ONE (19:05)
--- NOTE | 2018-03-09 19:44 | RAD ---
INDICATION: Pelvic pain COMPARISON: CT March 13, 2017 TECHNIQUE: Longitudinal and transverse transvaginal scans of the pelvis were obtained. FINDINGS: Uterus: The uterus is normal in size. There are no focal masses. The uterus measures 7.3 x 3.2 x 4.7 cm. Endometrial thickness: The endometrial thickness is measured at 0.6 cm. . Free fluid: There is no significant free fluid . Ovaries: The ovaries are normal in size. The right ovary measures 3.5 a 2.1 x 3.1 cm. The left ovary measures 3.8 x 2.1 x 1.7 cm. There are small follicles with a complex 2.0 x 1.7 x 2.0 cm left ovarian cyst. Doppler interrogation demonstrates flow to each ovary. Other: None IMPRESSION: COMPLEX 2 CM LEFT OVARIAN CYST LIKELY REPRESENTING A HEMORRHAGIC OR INVOLUTING CYST.
[2018-03-09] MEDS ORDERED: NS 0.9% 1000 ML* 1,000 ML IV ONE (20:30)
--- NOTE | 2018-03-09 20:48 | RAD ---
INDICATION: Right flank pain. Hematuria. History of closed cystectomy. History of appendectomy. COMPARISON: Pelvic sonogram same date; CT abdomen and pelvis March 13, 2017 TECHNIQUE: Noncontrast axial source images were acquired from the level hemidiaphragms to the symphysis pubis as part of CT imaging for renal stone. Lung bases: The lung bases are clear. Liver: The liver is enlarged with findings of hepatic steatosis. Noncontrast imaging shows no evidence of a hepatic mass or ductal dilatation. Gallbladder: Cholecystectomy. Spleen: The spleen is normal in size. The noncontrast CT appearance is normal. Pancreas: Noncontrast imaging shows no pancreatic mass or ductal dilitation. Adrenal glands: No masses are identified. Kidneys/Bladder: There is no evidence of nephrolithiasis or CT evidence of hydronephrosis. Noncontrast imaging shows no evidence of a renal mass. 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 This was described previously. The bladder is unremarkable.. Adenopathy: There is no evidence of intraperitoneal or retroperitoneal adenopathy. Evaluation is limited without oral contrast. Fluid collections: There is a small amount of free fluid in the dependent portion of pelvis likely representing physiologic free fluid. Vessels: The aorta and iliac vessels are normal in caliber. There are no significant atherosclerotic changes. The IVC appears normal Pelvic organs: The uterus and adnexa appear grossly normal. The pelvic structures are better visualized on the concurrent CT GI tract: Evaluation of the bowel is limited without oral contrast. The stomach, small bowel, and lower GI tract appear grossly normal. There are no obstructive findings. The appendix is visualized and appears normal. Soft tissues: No soft tissue abnormalities of the extraperitoneal abdomen or pelvis are identified. Osseous structures: There are no acute osseous findings. IMPRESSION: NO CT EVIDENCE OF UROLITHIASIS. SMALL AMOUNT OF FREE FLUID, LIKELY PHYSIOLOGIC FREE FLUID.
--- NOTE | 2018-03-09 21:39 | ED ---
Abdominal Pain/Female - HPI Summary HPI Summary: Patient presents with right lower quadrant pain that's been creeping up the past couple days but pain intolerable today. She denies fevers, chills, nausea , vomiting, diarrhea, dysuria, flank pain, hematuria, vaginal irritation, vaginal discharge, vaginal itching. She admits to history of cholecystectomy and appendectomy. She also admits to a history of ovarian cysts requiring surgery - unsure if this feels the same or not. These were perform a Dr. Miller a few years ago. Admits she's tried oral control in the past control these but she did not tolerate them well so does not take them any longer. Also reports she has a tipped uterus along with dyspareunia at times. No postcoital bleeding and all of her Pap smears have been normal in the past. She follows [facility]. History of UTIs and a kidney stone - unsure if this feels the same or not. Has been taking Tylenol along with NSAIDs without relief. Last took tylenol this morning. Works about 70 hours per week and does not sleep well - high stress in life. - History of Current Complaint Chief Complaint: EDAbdPain Stated Complaint: PELVIC PAIN Time Seen by Provider: 03/09/18 17:25 Hx Obtained From: Patient, Family/Painter [employer] - boyfriend Hx Last Menstrual Period: 12/08/17 Pain Intensity: 8 Allergies/Adverse Reactions: Allergies Allergy/AdvReac Type Severity Reaction Status Date / Time Penicillins Allergy Severe Anaphylatic Verified 03/09/18 21:26 Shock PMH/Surg Hx/FS Hx/Imm Hx Previously Healthy: Yes Endocrine/Hematology History: Denies: Hx Anticoagulant Therapy, Hx Blood Disorders, Hx Diabetes, Hx Thyroid Disease, Autoimmune Disease Cardiovascular History: Denies: Hx Hypertension Respiratory History: Denies: Hx Asthma, Hx Chronic Obstructive Pulmonary Disease (COPD) GI History: Denies: Hx Ulcer Comment Only: Hx Gall Bladder Disease - gallbladder removal Musculoskeletal History: Denies: Hx Rheumatoid Arthritis, Hx Osteoporosis Sensory History: Reports: Hx Eye Injury Opthamlomology History: Reports: Hx Eye Injury - Surgical History Surgery Procedure, Year, and Place: CHOLECYSTECTOMY, APPENDECTOMY, RIGHT FINGER , RIGHT HAND, right eye surgery, Hemorrhagic ovarian cyst - Immunization History Date of Tetanus Vaccine: unknown Date of Influenza Vaccine: 2012 Infectious Disease History: No Infectious Disease History: Denies: Hx Clostridium Difficile, Hx Hepatitis, Hx Human Immunodeficiency Virus (HIV), Hx of Known/Suspected MRSA, Hx Shingles, Hx Tuberculosis, Hx Known/ Suspected VRE, Hx Known/Suspected VRSA, History Other Infectious Disease, Traveled Outside the [place] in Last 30 Days - Family History Known Family History: Positive: None Family History: no cardio vascular issues in family lineage - Social History Occupation: Employed Full-time - 70 hours /week Lives: With Family - boyfriend Alcohol Use: Rare Hx Substance Use: No Substance Use Type: Reports: None Hx Tobacco Use: Yes Smoking Status (MU): Current Every Day Smoker Type: Cigarettes Amount Used/How Often: 1/2 ppd Length of Time of Smoking/Using Tobacco: 10 years Have You Smoked in the Last Year: Yes Review of Systems Constitutional: Negative Negative: Fever, Chills, Fatigue Negative: Chest Pain Negative: Shortness Of Breath Positive: Abdominal Pain, Nausea - when pain peaks only. Negative: Vomiting, Diarrhea Positive: see HPI Musculoskeletal: Negative Skin: Negative Neurological: Negative Positive: Anxious All Other Systems Reviewed And Are Negative: Yes Physical Exam Triage Information Reviewed: Yes Vital Signs On Initial Exam: Initial Vitals Temp Pulse Resp BP Pulse Ox 98.5 F 89 17 142/87 98 03/09/18 14:55 03/09/18 14:55 03/09/18 14:55 03/09/18 14:55 03/09/18 14:55 Vital Signs Reviewed: Yes Appearance: Positive: Well-Appearing, Well-Nourished, Pain Distress - sitting on stretcher, leaning forward, holding lower ab Skin: Positive: Warm, Skin Color Reflects Adequate Perfusion, Dry Head/Face: Positive: Normal Head/Face Inspection Eyes: Positive: EOMI, Conjunctiva Clear - anicteric sclera ENT: Positive: Hearing grossly normal, Pharynx normal - mucosa moist Neck: Positive: Supple Respiratory/Lung Sounds: Positive: Clear to Auscultation, Breath Sounds Present Cardiovascular: Positive: Normal, RRR Abdomen Description: Positive: No Organomegaly, Soft, Other: - RLQ TTP - no rebounding. Negative: Distended, Guarding Bowel Sounds: Positive: Present Pelvic Exam: Positive: External Exam Normal, Speculum Exam Normal, Bimanual Exam Normal, No Cerv. Motion Tender - but uterus is with mild TTP, Discharge - appears white, normal. Negative: Active Bleeding, Lesions, Ulcers Musculoskeletal: Positive: Normal, Strength/ROM Intact Neurological: Positive: Normal, Sensory/Motor Intact, Alert, Oriented to Person Place, Time, CN Intact II-III Psychiatric: Positive: Anxious Diagnostics - Vital Signs Vital Signs Temp Pulse Resp BP Pulse Ox 03/09/18 21:12 16 03/09/18 21:00 56 99 03/09/18 20:48 60 112/78 99 03/09/18 20:46 16 03/09/18 20:40 65 104/73 99 03/09/18 20:00 64 98 03/09/18 19:00 68 100 03/09/18 18:48 66 109/72 100 03/09/18 18:18 61 119/76 98 03/09/18 18:17 66 98 03/09/18 18:16 16 03/09/18 18:08 16 03/09/18 16:45 98.6 F 78 16 117/76 100 03/09/18 14:55 98.5 F 89 17 142/87 98 - Laboratory Lab Results: Lab Results 03/09/18 03/09/18 03/09/18 Range/Units 17:28 17:28 17:54 WBC 9.0 (3.5-10.8) 10^3/ul RBC 4.11 (4.00-5.40) 10^6/ul Hgb 13.3 (12.0-16.0) g/dl Hct 40 (35-47) % MCV 96 (80-97) fL MCH 33 H (27-31) pg MCHC 34 (31-36) g/dl RDW 13 (10.5-15) % Plt Count 307 (150-450) 10^3/ul MPV 6.5 L (7.4-10.4) um3 Neut % (Auto) 58.2 (38-83) % Lymph % (Auto) 31.3 (25-47) % [place] % (Auto) 7.5 H (0-7) % Eos % (Auto) 2.5 (0-6) % Baso % (Auto) 0.5 (0-2) % Absolute Neuts (auto) 5.2 (1.5-7.7) 10^3/ul Absolute Lymphs (auto) 2.8 (1.0-4.8) 10^3/ul Absolute Monos (auto) 0.7 (0-0.8) 10^3/ul Absolute Eos (auto) 0.2 (0-0.6) 10^3/ul Absolute Basos (auto) 0 (0-0.2) 10^3/ul Absolute Nucleated RBC 0 10^3/ul Nucleated RBC % 0 Sodium 139 (135-145) mmol/L Potassium 4.3 (3.5-5.0) mmol/L Chloride 107 (101-111) mmol/L Carbon Dioxide 27 (22-32) mmol/L Anion Gap 5 (2-11) mmol/L BUN 10 (6-24) mg/dL Creatinine 0.89 (0.51-0.95) mg/dL Est GFR ( Amer) 88.9 (>60) Est GFR (Non-Af Amer) 73.5 (>60) BUN/Creatinine Ratio 11.2 (8-20) Glucose 95 (70-100) mg/dL Calcium 9.3 (8.6-10.3) mg/dL Total Bilirubin 0.40 (0.2-1.0) mg/dL AST 18 (13-39) U/L ALT 13 (7-52) U/L Alkaline Phosphatase 60 (34-104) U/L C-Reactive Protein < 1.00 (<8.01) mg/L Total Protein 7.4 (6.4-8.9) g/dL Albumin 4.5 (3.2-5.2) g/dL Globulin 2.9 (2-4) g/dL Albumin/Globulin Ratio 1.6 (1-3) Lipase 18 (11.0-82.0) U/L Beta HCG, Quant < 0.60 mIU/mL Urine Color Yellow Urine Appearance Cloudy Urine pH 5.0 (5-9) Ur Specific [place] 1.017 (1.010-1.030) Urine Protein Negative (Negative) Urine Ketones Negative (Negative) Urine Blood 1+ A (Negative) Urine Nitrate Negative (Negative) Urine Bilirubin Negative (Negative) Urine Urobilinogen Negative (Negative) Ur Leukocyte Esterase Negative (Negative) Urine WBC (Auto) Absent (Absent) Urine RBC (Auto) Trace(0-2/hpf) (Absent) Ur Squamous Epith Cells Present A (Absent) Urine Bacteria Absent (Absent) Urine Glucose Negative (Negative) Result Diagrams: 03/09/18 17:28 03/09/18 17:28 Lab Statement: Any lab studies that have been ordered have been reviewed, and results considered in the medical decision making process. Re-Evaluation - Re-Evaluation First Eval Change: Unchanged - no relief w/ morphine Second Eval Change: Improved - some relief w/ toradol - requesting more pain relief - additional morphine ordered Abdominal Pain Fem Course/Dx - Course Course Of Treatment: Ct w/o urinary tract pathology or other findings of concern. US reveals Left complex cyst < 5 cm and no torsion B/L. Labs are WNL except +1 blood on U/A. Discussed potential issues causing pain but none are emergent or life threatening at this time. She will f/u w/ [facility] as recommended and return to ED if danger s/sx present. Also discussed that if cx's are positive will call to e-rx medication however based on exam today, will not initiate anbx. Pt and partner agree w/ plan - Diagnoses Provider Diagnoses: Uterine pain, Ovarian cyst Discharge - Sign-Out/Discharge Documenting (check all that apply): Patient Departure - Discharge Plan Condition: Stable Disposition: HOME Prescriptions: Naproxen [Naproxen 500 mg tab] 500 mg PO BID PRN #20 tablet.dr CHANG Reason: Pain Patient Education Materials: Ovarian Cyst (ED), Pelvic Pain in Women (ED) Forms: *Work Release Referrals: Mikey Jackman MD [Medical Doctor] - Additional Instructions: The definitive cause of your pelvic pain was not identified tonight however you seem to have pain with palpation of your uterus. You were also found to have a complex left ovarian cyst without torsion. Since you have had abdominal surgery in the right lower quadrant, it is also suspected to may be having pain from adhesions/scar tissue. It is recommended that you try to eat a healthy/ balanced diet, stay hydrated and implement warm Epsom salt baths along with Castrol oil packs (see below for instructions). Additionally, you may try a magnesium supplement. You've revealed that you work quite a bit and have a lot of stress in your life. Anything you can do to reduce the stress will be of benefit. It is important that you follow up with [facility] for further investigation of your recurrence of cysts and irregular periods. Call Dr. Jackman's office on Sunday to schedule an appointment. *If in the meantime you develop fever, chills, chest pain, difficulty breathing or swallowing, difficulty urinating or moving bowels or intractable pain of your abdomen, return to the emergency department. [place] Oil Transdermal Packs When the first symptoms of cramping become noticeable, a castor oil transdermal pack can dramatically reduce the severity of symptoms throughout the cycle. This is the basic procedure: 1. A wash cloth should be soaked in pure, cold-pressed castor oil that is obtained from a [employer] [place] food store. 2. The wash cloth should be placed on bare skin on the lower stomach. 3. Put a piece of plastic on top of the cloth, such as a plastic grocery bag. 4. Place a hot water bottle on top of that. The water should be made as hot as possible, so long as the patient can tolerate it. 5. Leave this in place for at least 30 minutes. The above procedure can also be done repeatedly during the cycle to provide relief. However one treatment is usually enough to provide significant relief. Women should use only dioxin-free, unchlorinated feminine products, especially tampons. Consuming [place] nuts is ideal, because they contain folate, selenium, and magnesium, which have all been shown to reduce menstrual cramps. - Billing Disposition and Condition Condition: STABLE Disposition: Home
[2018-03-09 21:44] VITALS: BP 113/78
--- NOTE | 2018-03-11 06:50 | PN ---
Progress Note - Progress Note Date of Service: 03/11/18 Note: Patient's vaginal culture positive for Gardnerella. will send prescription for Flagyl 500 mg twice a day for 7 days. attempted to leave message and vm not set up will have letter sent.
== END 2018-03-09 21:58 | disposition home or self-care (01) ==
LOC: ED 14:51
DX: N94.89 Other specified conditions associated with female genital organs and menstrual cycle (principal); N83.202 Unspecified ovarian cyst, left side; Z87.440 Personal history of urinary (tract) infections; Z87.442 Personal history of urinary calculi; Z88.0 Allergy status to penicillin; F17.210 Nicotine dependence, cigarettes, uncomplicated
CPT/HCPCS: 36415; 74176; 76830; 80053; 81003; 81015; 83690; 84702; 85025; 86140; 87480; 87491; 87510; 87591; 96374; 96375; 96376; 99282; J1885; J2270; J2405